=== PATIENT | male | born 2000 | race Caucasian/White ===

== ENCOUNTER 2018-11-08 18:16 | Observation (INO) ==
[2018-11-08] MEDS ORDERED: NUBAIN INJ 10 IM ONE (18:35)
[2018-11-08] MEDS ORDERED: ZOFRAN INJ 4 MG VIAL IVP ONE (18:35)
[2018-11-08] MEDS ORDERED: NS 1000 ML 1,000 ML IV ONE (18:35)
[2018-11-08] MEDS ORDERED: NUBAIN INJ 10 ONE (18:40)
--- NOTE | 2018-11-08 18:46 | DR.ABDMALE ---
HPI Time seen Time Seen by Provider: 11/08/18 18:34 PCP Primary Care Physician: DR FIERRO Complaint Chief Complaint Doctors Comments: A 17 y/o male presenting with c/o abd. pain that was sudden in onset about 1 hr. DELIVERY PERSON in the ED. Location is in the Rt. flank and RLQ. He describes this as being sharp in nature. It has been constant ans he has nausea with one episode of emesis so far. He has a hx. of nephrolithiasis and has undergone multiple lithotripsies but states that this [ain feels different from his usual renal stone pain. He has no dysuria. Chief Complaint:: PT WOKE UP ABOUT TEN MINUTES AGO WITH SEVERE PAIN INTO RLQ THAT STARTED SUDDENLY AND IS DESCRIBED CONSTANT SHARP STABBING ASSOCIATED WITH NAUSEA AND VOMITING. Reviewed Nurses Notes Review: Yes Source History provided by:: Pt. Mode of arrival Mode of Arrival: Ambulatory Timing Onset of Chief Complaint: 11/08/18 Came on: Suddenly and On Awakening Duration Duration: Constant How lon Duration: Hours Location Location: RLQ Severity Severity: Severe Quality Quality: Sharp Context Onset: Suddenly History of: Urolithiasis Modifying factors Worsening Factors: Movement Improving Factors: Nothing Associated signs and symptoms Associated Signs and Symptoms: Nausea and Vomiting PMH PMH Past Medical History: Yes Past Medical History: Kidney Stones Past Surgical History: Yes Surgical History: Lithotripsy Family History History of Family Medical Conditions: No Social History Does patient currently use any type of tobacco product: No Have you used tobacco products in the last 12 months: No Type of Tobacco Use: Cigarettes Does any household member use tobacco: No Alcohol Use: Rarely Do you use any recreational Drugs:: No Lives With: Family Lives Where: Home infectious screening In the last 2 months have you had wt loss of >10#?: NO Have you had fever, night sweats or hemotysis?: No Have you traveled outside the country in the last 6 months?: No Isolation: Standard ROS Review of Systems Constitutional: No Symptoms Reported Eyes: No Symptoms Reported ENTM: No Symptoms Reported Respiratoy: No Symptoms Reported Cardiovascular: No Symptoms Reported Gastrointestinal/Abdominal: Abdominal Pain, Nausea and Vomiting Genitourinary: No Symptoms Reported Neurological: No Symptoms Reported Musculoskeletal: No Symptoms Reported Integumentary: No Symptoms Reported Hematologic/Lymphatic: No Symptoms Reported Endocrine: No Symptoms Reported Psychiatric: No Symptoms Reported PE Vital Signs Vital Signs: Temp Pulse Pulse Resp BP BP Pulse Ox 11/08/18 23:00 66 129/66 98 11/08/18 22:45 67 99 11/08/18 22:30 69 130/76 98 11/08/18 19:51 20 11/08/18 18:51 20 11/08/18 18:19 98.8 F 76 20 134/86 99 General Limitations: No Limitations General Appearance: Alert and In Distress (presumed pain related ) Head Head Exam: Normal Inspection, Atraumatic and Normocephalic Eyes Eye exam: Normal Appearance and EOMI ENT ENT Exam: Normal Oropharynx and Mucous Membranes Moist Neck Neck Exam: Normal Inspection, Full ROM and Trachea Midline Chest Chest Inspection: Normal Inspection and Symmetric Chest Wall Rise Respiratory Respiratory Exam: Normal Lung Sounds Bilat Cardiovascular Cardiovascular Exam: Regular Rate, Normal Rhythm, +S1 and +S2 Abdominal Exam Abdominal Exam: Normal Inspection, Normal Bowel Sounds, Soft, Tenderness and Other; negative Distention, Guarding, Rebound, Rigidity, Dimnished Bowel Sounds, Hyperactive Bowel Sounds, Hypoactive Bowel Sounds, Organomegaly, Trauma, Incision, Ascites, Mass, Bruit, Pulsatile Mass and Hernia Abdominal Tenderness: RLQ and Other (Rt. flank) Rectal Rectal Exam: Deferred Back Back Exam: Normal Inspection and (R) CVA Tenderness Extremeties Extremities Exam: Normal Inspection and Full ROM Exam: Male: Deferred Neurologic Neurological Exam: Alert and Oriented X3 Psychiatric Psychiatric Exam: Normal Affect and Normal Mood Skin Skin Exam: Dry and Normal Color MDM Differential Diagnosis Differential Diagnosis: Appendicitis, Cholelethiasis, Urinary tract infection and Urolithiasis COURSE Reevaluation 1st: Improved 2nd: Unchanged Consultation Consultation Comments: I spoke with both the Surgeon (Dr. VILLATORO) and Hospitalist (Dr. Wilson), they are both in agreement to this pt. being admitted. Education/Counseling Education/Counseling: Patient, Education and Counseling Educated On: Treatment, Diagnosis, Prognosis and Needs for Follow Up ROR Labs Reviewed Laboratory Results Reviewed?: Yes Result Diagrams: 11/08/18 18:46 11/08/18 18:46 Laboratory: WBC 10.0 X10^3/uL (3.6-10.0) 11/08/18 18:46 RBC 5.29 X10^6/uL (4.7-6.0) 11/08/18 18:46 Hgb 15.0 g/dL (13.5-18.0) 11/08/18 18:46 Hct 43.5 % (42.0-54.0) 11/08/18 18:46 MCV 82.2 fL (80.0-100.0) 11/08/18 18:46 MCH 28.3 pg (27.0-34.0) 11/08/18 18:46 MCHC 34.4 g/dL (33.0-35.0) 11/08/18 18:46 RDW 13.1 % (11.6-16.5) 11/08/18 18:46 Plt Count 263 X10^3/uL (150.0-450.0) 11/08/18 18:46 MPV 7.2 fL (7.4-11.0) L 11/08/18 18:46 Neut % (Auto) 71.2 % (42.0-75.0) 11/08/18 18:46 Lymph % (Auto) 18.9 % (21.0-51.0) L 11/08/18 18:46 [place] % (Auto) 5.9 % (0.0-13.0) 11/08/18 18:46 Eos % (Auto) 2.8 % (0.9-2.9) 11/08/18 18:46 Baso % (Auto) 1.2 % (0.2-1.0) H 11/08/18 18:46 Neut # (Auto) 7.1 x10^3/uL (2.2-4.8) H 11/08/18 18:46 Lymph # (Auto) 1.9 X10^3/uL (1.3-2.9) 11/08/18 18:46 [place] # (Auto) 0.6 x10^3/uL (0.3-0.8) 11/08/18 18:46 Eos # (Auto) 0.3 x10^3/uL (0.0-0.2) H 11/08/18 18:46 Baso # (Auto) 0.1 X10^3/uL (0.0-0.1) 11/08/18 18:46 Absolute Nucleated RBC 0.0 /100WBC 11/08/18 18:46 Sodium 138 mmol/L (136-145) 11/08/18 18:46 Corrected Sodium TNP 11/08/18 18:46 Potassium 3.9 mmol/L (3.5-5.1) 11/08/18 18:46 Chloride 102 mmol/L (98-107) 11/08/18 18:46 Carbon Dioxide 29.2 mmol/L (21-32) 11/08/18 18:46 BUN 12 mg/dL (7-18) 11/08/18 18:46 Creatinine 1.32 mg/dL (0.70-1.30) H 11/08/18 18:46 Est GFR (MDRD) Af Amer > 60 (>60) 11/08/18 18:46 Est GFR (MDRD) Non-Af > 60 (>60) 11/08/18 18:46 Glucose 92 mg/dL (65-99) 11/08/18 18:46 Calcium 9.4 mg/dL (8.5-10.1) 11/08/18 18:46 Corrected Calcium TNP 11/08/18 18:46 Total Bilirubin 0.50 mg/dL (0.2-1.0) 11/08/18 18:46 AST 16 Units/L (15-37) 11/08/18 18:46 ALT 15 Units/L (12-78) 11/08/18 18:46 Alkaline Phosphatase 66 Units/L (75-270) L 11/08/18 18:46 Total Protein 7.6 g/dL (6.4-8.2) 11/08/18 18:46 Albumin 4.3 g/dL (3.4-5.0) 11/08/18 18:46 Globulin 3.3 g/dL (2.5-4.5) 11/08/18 18:46 Albumin/Globulin Ratio 1.3 Ratio (1.1-2.1) 11/08/18 18:46 Specimen Type Clean catch urine 11/08/18 19:57 Urine Color Yellow (YELLOW) 11/08/18 19:57 Urine Appearance Clear (CLEAR) 11/08/18 19:57 Urine pH 6.5 (5.0 - 8.0) 11/08/18 19:57 Ur Specific [place] 1.015 (1.000-1.030) 11/08/18 19:57 Urine Protein Negative (NEGATIVE) 11/08/18 19:57 Urine Glucose (UA) Negative (NEGATIVE) 11/08/18 19:57 Urine Ketones Negative (NEGATIVE) 11/08/18 19:57 Urine Occult Blood 2+ (NEGATIVE) 11/08/18 19:57 Urine Nitrite Negative (NEGATIVE) 11/08/18 19:57 Urine Bilirubin Negative (NEGATIVE) 11/08/18 19:57 Urine Urobilinogen Normal (NORMAL) 11/08/18 19:57 Ur Leukocyte Esterase Negative (NEGATIVE) 11/08/18 19:57 Urine RBC 3-5 /HPF (NONE SEEN) 11/08/18 19:57 Urine WBC None seen /HPF (NONE SEEN) 11/08/18 19:57 Ur Squamous Epith Cells Rare /HPF (NEGATIVE) 11/08/18 19:57 Urine Bacteria Negative /HPF (NEGATIVE) 11/08/18 19:57 Ur Culture Indicated? No/not indicated 11/08/18 19:57 Other Results Comments: Abdomial/Pelvic CT Scan report: Early appendicitis without evidence of perforation or abscess formation. Opioid Opioid Risk Tool Total: 0 Total Score Risk Category: Low Risk Copyright: Daniel NAIDU predicting aberrant behaviors Diagnosis Discharge Problem: Acute appendicitis Qualifiers: Acute appendicitis type: unspecified acute appendicitis type Qualified Code(s): K35.80 - Unspecified acute appendicitis
[2018-11-08] MEDS ORDERED: NUBAIN INJ 10 IVP ONE (18:51)
[2018-11-08 18:57] LABS: BASOPHILS # (AUTO) 0.1 X10^3/uL (0.0-0.1); BASOPHILS % (AUTO) 1.2 % (0.2-1.0); EOSINOPHILS # (AUTO) 0.3 x10^3/uL (0.0-0.2); EOSINOPHILS % (AUTO) 2.8 % (0.9-2.9); HEMATOCRIT 43.5 % (42.0-54.0); LYMPHOCYTES # (AUTO) 1.9 X10^3/uL (1.3-2.9); LYMPHOCYTES % (AUTO) 18.9 % (21.0-51.0); MEAN CORPUSCULAR HEMOGLOBIN 28.3 pg (27.0-34.0); MEAN CORPUSCULAR HGB CONC 34.4 g/dL (33.0-35.0); MEAN CORPUSCULAR VOLUME 82.2 fL (80.0-100.0); MEAN PLATELET VOLUME 7.2 fL (7.4-11.0); MONOCYTES # (AUTO) 0.6 x10^3/uL (0.3-0.8); MONOCYTES % (AUTO) 5.9 % (0.0-13.0); NEUTROPHILS # (AUTO) 7.1 x10^3/uL (2.2-4.8); NEUTROPHILS % (AUTO) 71.2 % (42.0-75.0); PLATELET COUNT 263 X10^3/uL (150.0-450.0); RED BLOOD COUNT 5.29 X10^6/uL (4.7-6.0); RED CELL DISTRIBUTION WIDTH 13.1 % (11.6-16.5)
[2018-11-08 19:05] LABS: ALANINE AMINOTRANSFERASE 15 Units/L (12-78); ALBUMIN 4.3 g/dL (3.4-5.0); ALKALINE PHOSPHATASE 66 Units/L (75-270); ASPARTATE AMINO TRANSFERASE 16 Units/L (15-37); BLOOD UREA NITROGEN 12 mg/dL (7-18); CALCIUM 9.4 mg/dL (8.5-10.1); CARBON DIOXIDE 29.2 mmol/L (21-32); CHLORIDE 102 mmol/L (98-107); CREATININE 1.32 mg/dL (0.70-1.30); SODIUM 138 mmol/L (136-145); TOTAL PROTEIN 7.6 g/dL (6.4-8.2); eGFR NON BLACK RACES > 60 (>60)
[2018-11-08 20:03] LABS: BILIRUBIN,URINE NEGATIVE (NEGATIVE); BLOOD/HEMOGLOBIN,URINE 2+ (NEGATIVE); GLUCOSE, URINE NEGATIVE (NEGATIVE); KETONES,URINE NEGATIVE (NEGATIVE); LEUKOCYTE ESTERASE ,URINE NEGATIVE (NEGATIVE); NITRITES,URINE NEGATIVE (NEGATIVE); PH,URINE 6.5 (5.0 - 8.0); PROTEIN,URINE NEGATIVE (NEGATIVE); UROBILINOGEN,URINE NORMAL (NORMAL)
[2018-11-08 20:30] LABS: APPEARANCE,URINE CLEAR (CLEAR); BACTERIA,URINE NEGATIVE /HPF (NEGATIVE); COLOR,URINE YELLOW (YELLOW); SQUAMOUS EPITHELIAL CELL,UR RARE /HPF (NEGATIVE)
[2018-11-08] MEDS ORDERED: NS 100 ML IV 100 ML ONE (20:32)
--- NOTE | 2018-11-08 21:07 | CT ---
CT abdomen and pelvis with contrast Indication: Right lower quadrant pain Comparison: None available Technique: Multiple axial images of the abdomen and pelvis were obtained from the lung bases to the pubic symphysis after the administration of IV contrast. Coronal and sagittal reformatted images were also provided. Dose reduction techniques including automated exposure control (AEC) and adjustment of mA and kV were utilized. Findings: The lung bases are clear. No focal hepatic lesion is identified. Gallbladder, bile ducts, spleen, pancreas and adrenal glands are normal. Neither kidney demonstrates evidence of hydronephrosis or mass. Punctate stone noted within the pole the right kidney is most consistent with a nonobstructing stone. Additional punctate stones within the left kidney also likely represent nonobstructing stones. Upper GI tract is unremarkable. Urinary bladder is normal. Prostate gland is normal. The rectum and colon are normal. The appendix is mildly dilated with increased mucosal enhancement and periappendiceal stranding consistent with appendicitis. No localizing fluid collection or gas. Abdominal aorta is normal in caliber. Review of bone windows demonstrates no acute osseous abnormality. Impression: 1.Early acute appendicitis without evidence of perforation or abscess formation. Surgical consultation is recommended. 2. Suspected bilateral punctate nonobstructing nephrolithiasis; however, correlation with urinalysis is needed to exclude the possibility of very early excretion of iodinated contrast. Reported By:
[2018-11-08] MEDS ORDERED: ZOSYN VIAL 2.25 GRAMS 2.25 G in NS 100 ML IV + SPIKE MINIBAG* 100 ML IV SCH (22:00)
[2018-11-08] MEDS: NS 1000 ML 1,000 ML IV SCH (22:02)
[2018-11-08] MEDS ORDERED: DILAUDID INJ IVP PRN (23:10)
[2018-11-08] MEDS ORDERED: ZOFRAN INJ 4 MG VIAL IVP PRN (23:10)
[2018-11-08] MEDS ORDERED: ZOSYN VIAL 2.25 GRAMS 2.25 G in NS 100 ML IV + SPIKE MINIBAG* 100 ML IV ONE (23:21)
[2018-11-09 00:09] VITALS: BMI 24.3
[2018-11-09 05:10] LABS: BASOPHILS % (AUTO) 0.7 % (0.2-1.0); EOSINOPHILS # (AUTO) 0.2 x10^3/uL (0.0-0.2); EOSINOPHILS % (AUTO) 3.6 % (0.9-2.9); HEMATOCRIT 40.4 % (42.0-54.0); HEMOGLOBIN 13.7 g/dL (13.5-18.0); LYMPHOCYTES # (AUTO) 1.3 X10^3/uL (1.3-2.9); LYMPHOCYTES % (AUTO) 20.5 % (21.0-51.0); MEAN CORPUSCULAR HEMOGLOBIN 28.2 pg (27.0-34.0); MEAN PLATELET VOLUME 7.2 fL (7.4-11.0); MONOCYTES # (AUTO) 0.6 x10^3/uL (0.3-0.8); MONOCYTES % (AUTO) 9.6 % (0.0-13.0); NEUTROPHILS # (AUTO) 4.3 x10^3/uL (2.2-4.8); NEUTROPHILS % (AUTO) 65.6 % (42.0-75.0); PLATELET COUNT 231 X10^3/uL (150.0-450.0); RED BLOOD COUNT 4.87 X10^6/uL (4.7-6.0); RED CELL DISTRIBUTION WIDTH 13.2 % (11.6-16.5); WHITE BLOOD COUNT 6.6 X10^3/uL (3.6-10.0)
[2018-11-09 05:22] LABS: ALANINE AMINOTRANSFERASE 15 Units/L (12-78); ALBUMIN 3.6 g/dL (3.4-5.0); ALKALINE PHOSPHATASE 58 Units/L (75-270); ASPARTATE AMINO TRANSFERASE 11 Units/L (15-37); BLOOD UREA NITROGEN 10 mg/dL (7-18); CALCIUM 8.6 mg/dL (8.5-10.1); CARBON DIOXIDE 27.8 mmol/L (21-32); CHLORIDE 103 mmol/L (98-107); CREATININE 1.13 mg/dL (0.70-1.30); SODIUM 138 mmol/L (136-145); TOTAL PROTEIN 6.7 g/dL (6.4-8.2); eGFR NON BLACK RACES > 60 (>60)
[2018-11-09] MEDS: NS 1000 ML 1,000 ML IV SCH ×4 (05:58→21:20)
[2018-11-09] MEDS ORDERED: LR 1000 ML IV 1,000 ML ONE ×2 (07:41→10:58)
[2018-11-09] MEDS ORDERED: BACTROBAN TOPICAL OINT ONE (07:41)
[2018-11-09] MEDS ORDERED: ANCEF 1 GRAM IV PREMIX* 1 G/50 ML BAG IV ONE (07:41)
[2018-11-09] MEDS ORDERED: DILAUDID INJ ONE ×2 (09:48→11:26)
[2018-11-09] MEDS ORDERED: FENTANYL INJ 250 mcg ONE (09:48)
[2018-11-09] MEDS ORDERED: DECADRON INJ ONE (09:49)
[2018-11-09] MEDS ORDERED: ZEMURON ONE (09:58)
[2018-11-09] MEDS ORDERED: AMIDATE INJ 40 MG VIAL ONE (10:05)
--- NOTE | 2018-11-09 11:18 | OR.GENERIC ---
Post-Op Note Generic - Post-Op Note Operative Report: lap appendectomy was done without complication . finding : acute appendicitis . EBL 10 cc. same IV ATB . NPO .. may have ice .
[2018-11-09] MEDS ORDERED: ROBINUL ONE (15:54)
[2018-11-09] MEDS ORDERED: NEOSTIGMINE INJ ONE (15:54)
[2018-11-09] MEDS ORDERED: ULTANE GAS ONE (15:54)
[2018-11-09] MEDS ORDERED: ZOFRAN INJ 4 MG VIAL ONE (15:54)
[2018-11-09] MEDS ORDERED: VERSED ONE (15:54)
[2018-11-09] MEDS: DILAUDID INJ IVP PRN (18:20)
[2018-11-10] MEDS: DILAUDID INJ IVP PRN ×2 (03:36→10:29)
[2018-11-10 05:44] LABS: BASOPHILS % (AUTO) 0.4 % (0.2-1.0); EOSINOPHILS % (AUTO) 0.4 % (0.9-2.9); HEMATOCRIT 39.4 % (42.0-54.0); HEMOGLOBIN 13.6 g/dL (13.5-18.0); LYMPHOCYTES # (AUTO) 0.9 X10^3/uL (1.3-2.9); LYMPHOCYTES % (AUTO) 13.4 % (21.0-51.0); MEAN CORPUSCULAR HEMOGLOBIN 28.4 pg (27.0-34.0); MEAN CORPUSCULAR HGB CONC 34.4 g/dL (33.0-35.0); MEAN CORPUSCULAR VOLUME 82.4 fL (80.0-100.0); MEAN PLATELET VOLUME 7.9 fL (7.4-11.0); MONOCYTES # (AUTO) 0.6 x10^3/uL (0.3-0.8); MONOCYTES % (AUTO) 9.1 % (0.0-13.0); NEUTROPHILS # (AUTO) 4.9 x10^3/uL (2.2-4.8); NEUTROPHILS % (AUTO) 76.7 % (42.0-75.0); PLATELET COUNT 255 X10^3/uL (150.0-450.0); RED BLOOD COUNT 4.79 X10^6/uL (4.7-6.0); RED CELL DISTRIBUTION WIDTH 12.9 % (11.6-16.5); WHITE BLOOD COUNT 6.4 X10^3/uL (3.6-10.0)
[2018-11-10 05:53] LABS: ALANINE AMINOTRANSFERASE 11 Units/L (12-78); ALBUMIN 3.4 g/dL (3.4-5.0); ALKALINE PHOSPHATASE 56 Units/L (75-270); ASPARTATE AMINO TRANSFERASE 12 Units/L (15-37); BLOOD UREA NITROGEN 9 mg/dL (7-18); CALCIUM 8.4 mg/dL (8.5-10.1); CARBON DIOXIDE 27.1 mmol/L (21-32); CHLORIDE 102 mmol/L (98-107); CREATININE 0.91 mg/dL (0.70-1.30); SODIUM 138 mmol/L (136-145); TOTAL PROTEIN 6.6 g/dL (6.4-8.2); eGFR NON BLACK RACES > 60 (>60)
[2018-11-10] MEDS: NS 1000 ML 1,000 ML IV SCH ×2 (06:13→13:07)
[2018-11-10] MEDS ORDERED: PERCOCET TAB 5/325 MG PO PRN (11:14)
[2018-11-10 11:52] VITALS: BP 118/67
--- NOTE | 2018-11-10 13:01 | DR.PROGNOT ---
Hospital Progress Notes - Progress Note for Day of: Progress Note Date: 11/10/18 - Chief Complaint Chief Complaint: po lap appendectomy day 1 . doing fairly well , c/o abdominal pain , tolerating clear liquid . - Past Medical Family Social History Allergies: Allergies propofol Allergy (Verified 11/08/18 18:47) - Vital Signs Vital Signs: Temperature 97.8 F Pulse Rate [Right Brachial] 83 Pulse Rate [Left] 99 Pulse Rate 73 Respiratory Rate 18 Blood Pressure [Right Arm] 118/67 Blood Pressure 125/57 O2 Sat by Pulse Oximetry 95 - Physical Exam Mood Description: Calm Speech Pattern: Clear, Appropriate - Laboratory and Diagnostics Result Diagrams: 11/10/18 04:28 11/10/18 04:28 Labs: Laboratory WBC 6.4 X10^3/uL (3.6-10.0) 11/10/18 04:28 RBC 4.79 X10^6/uL (4.7-6.0) 11/10/18 04:28 Hgb 13.6 g/dL (13.5-18.0) 11/10/18 04:28 Hct 39.4 % (42.0-54.0) L 11/10/18 04:28 MCV 82.4 fL (80.0-100.0) 11/10/18 04:28 MCH 28.4 pg (27.0-34.0) 11/10/18 04:28 MCHC 34.4 g/dL (33.0-35.0) 11/10/18 04:28 RDW 12.9 % (11.6-16.5) 11/10/18 04:28 Plt Count 255 X10^3/uL (150.0-450.0) 11/10/18 04:28 MPV 7.9 fL (7.4-11.0) 11/10/18 04:28 Neut % (Auto) 76.7 % (42.0-75.0) H 11/10/18 04:28 Lymph % (Auto) 13.4 % (21.0-51.0) L 11/10/18 04:28 [place] % (Auto) 9.1 % (0.0-13.0) 11/10/18 04:28 Eos % (Auto) 0.4 % (0.9-2.9) L 11/10/18 04:28 Baso % (Auto) 0.4 % (0.2-1.0) 11/10/18 04:28 Neut # (Auto) 4.9 x10^3/uL (2.2-4.8) H 11/10/18 04:28 Lymph # (Auto) 0.9 X10^3/uL (1.3-2.9) L 11/10/18 04:28 [place] # (Auto) 0.6 x10^3/uL (0.3-0.8) 11/10/18 04:28 Eos # (Auto) 0.0 x10^3/uL (0.0-0.2) 11/10/18 04:28 Baso # (Auto) 0.0 X10^3/uL (0.0-0.1) 11/10/18 04:28 Absolute Nucleated RBC 0.1 /100WBC 11/10/18 04:28 Sodium 138 mmol/L (136-145) 11/10/18 04:28 Corrected Sodium TNP 11/10/18 04:28 Potassium 3.9 mmol/L (3.5-5.1) 11/10/18 04:28 Chloride 102 mmol/L (98-107) 11/10/18 04:28 Carbon Dioxide 27.1 mmol/L (21-32) 11/10/18 04:28 BUN 9 mg/dL (7-18) 11/10/18 04:28 Creatinine 0.91 mg/dL (0.70-1.30) 11/10/18 04:28 Est GFR (MDRD) Af Amer > 60 (>60) 11/10/18 04:28 Est GFR (MDRD) Non-Af > 60 (>60) 11/10/18 04:28 Glucose 97 mg/dL (65-99) 11/10/18 04:28 Calcium 8.4 mg/dL (8.5-10.1) L 11/10/18 04:28 Corrected Calcium TNP 11/10/18 04:28 Total Bilirubin 0.70 mg/dL (0.2-1.0) 11/10/18 04:28 AST 12 Units/L (15-37) L 11/10/18 04:28 ALT 11 Units/L (12-78) L 11/10/18 04:28 Alkaline Phosphatase 56 Units/L (75-270) L 11/10/18 04:28 Total Protein 6.6 g/dL (6.4-8.2) 11/10/18 04:28 Albumin 3.4 g/dL (3.4-5.0) 11/10/18 04:28 Globulin 3.2 g/dL (2.5-4.5) 11/10/18 04:28 Albumin/Globulin Ratio 1.1 Ratio (1.1-2.1) 11/10/18 04:28 Specimen Type Clean catch urine 11/08/18 19:57 Urine Color Yellow (YELLOW) 11/08/18 19:57 Urine Appearance Clear (CLEAR) 11/08/18 19:57 Urine pH 6.5 (5.0 - 8.0) 11/08/18 19:57 Ur Specific [place] 1.015 (1.000-1.030) 11/08/18 19:57 Urine Protein Negative (NEGATIVE) 11/08/18 19:57 Urine Glucose (UA) Negative (NEGATIVE) 11/08/18 19:57 Urine Ketones Negative (NEGATIVE) 11/08/18 19:57 Urine Occult Blood 2+ (NEGATIVE) 11/08/18 19:57 Urine Nitrite Negative (NEGATIVE) 11/08/18 19:57 Urine Bilirubin Negative (NEGATIVE) 11/08/18 19:57 Urine Urobilinogen Normal (NORMAL) 11/08/18 19:57 Ur Leukocyte Esterase Negative (NEGATIVE) 11/08/18 19:57 Urine RBC 3-5 /HPF (NONE SEEN) 11/08/18 19:57 Urine WBC None seen /HPF (NONE SEEN) 11/08/18 19:57 Ur Squamous Epith Cells Rare /HPF (NEGATIVE) 11/08/18 19:57 Urine Bacteria Negative /HPF (NEGATIVE) 11/08/18 19:57 Ur Culture Indicated? No/not indicated 11/08/18 19:57 Tissue Pathology To follow 11/09/18 12:57 - Assessment and Plan 1: acute appendicitis ,PO lap appendectomy . to advance diet , same IV ATB . d/c in AM - Problem Patient Problems: Patient Problems Acute appendicitis (Acute) K35.80
--- NOTE | 2018-11-10 13:37 | DR.H&P ---
H&P - History & Physical for Day of: H&P Date: 11/08/18 - Chief Complaint Chief Complaint: ABDOMINAL PAIN, N/V - History of Present Illness History of Present Illness: 17 WM ER ADMISSION AFTER PRESENTING WITH CO INTRACTABLE RLQ AND R FLANK PAIN FEW HOURS PRIOR TO ARRIVAL WITH N/V. PT HAD CT IN ER WITH ACUTE APPENDICITIS. PT HAD PMH OF RENAL CALCULI. PT ADMITTED FOR SURGICAL CONSULT AND IV ATBX THERAPY. - Past Medical History Past Medical History: Kidney Stones - Past Surgical History Surgical History: Lithotripsy - Social History Does patient currently use any type of tobacco product: Yes Have you used tobacco products in the last 12 months: Yes Type of Tobacco Use: Cigarettes Does any household member use tobacco: No Alcohol Use: Occasionally Drug Use: None - Medications Home Medications: propofol Allergy (Verified 11/08/18 18:47) CONTINUE taking the following medications NK 11/08/18 [History] - Review of Systems Constitutional: Chills, Malaise Eyes: No Symptoms Reported ENT: No Symptoms Reported Respiratory: No Symptoms Reported Cardiovascular: No Symptoms Reported Gastrointestinal: Nausea, Vomiting, Abdominal Pain Genitourinary: No Symptoms Reported Musculoskeletal: Back Pain Skin: No Symptoms Reported Neurological: No Symptoms Reported - Physical Exam Vital Signs: Temperature 97.8 F Pulse Rate [Right Brachial] 83 Pulse Rate [Left] 99 Pulse Rate 73 Respiratory Rate 18 Blood Pressure [Right Arm] 118/67 Blood Pressure 125/57 O2 Sat by Pulse Oximetry 95 Oriented: Normal Eyes: Normal Ear: Normal Nose: Injected Throat: Normal Respiratory: Clear Throughout Cardiovascular: Normal : Normal Auscultation: Bowel Sounds: Normal Palpation: Normal Tenderness: RLQ, Periumbilical Skin: Normal Musculoskeletal: Normal Psychiatric: Normal Mood Description: Calm Speech Pattern: Clear, Appropriate - Assessment/Plan (1) Acute appendicitis Qualifiers: Acute appendicitis type: unspecified acute appendicitis type Qualified Code(s): K35.80 - Unspecified acute appendicitis Status: Acute Plan: ADMIT, NPO PAIN CONTROL. IV HYDRATION, CONSULT DR MURRAY - Allergies Allergies/Adverse Reactions: Allergies Allergy/AdvReac Type Severity Reaction Status Date / Time propofol Allergy Verified 11/08/18 18:47
--- NOTE | 2018-11-10 13:39 | PCM.PROG ---
Progress Note - Progress Note for Day of Date of Exam: 11/09/18 - Subjective Subjective: 17 WM ER ADMISSION LAST PM WITH EARLY ACUTE APPENDICITIS. PT IS NPO FOR APPEDECTOMY PER DR MURRAY THIS AM. - Past Medical Family Social History Past Med/Fam/Surg Hx: No changes since H&P Allergies: Allergies propofol Allergy (Verified 11/08/18 18:47) - Review of Systems ROS: No change since H&P - Vital Signs and I&O's Vital Signs: Temperature 97.8 F Pulse Rate [Right Brachial] 83 Pulse Rate [Left] 99 Pulse Rate 73 Respiratory Rate 18 Blood Pressure [Right Arm] 118/67 Blood Pressure 125/57 O2 Sat by Pulse Oximetry 95 Intake and Output: Intake & Output 11/08/18 11/09/18 11/10/18 11/11/18 11:59 11:59 11:59 11:59 Intake Total 1300 / 1300 560 / 560 Output Total 310 / 310 Balance 990 / 990 560 / 560 - Physical Exam Oriented: Normal Eyes: Normal Ear: Normal Nose: Injected Throat: Normal Cardiovascular: Normal : Normal Auscultation: Bowel Sounds: Normal Tenderness: RLQ, Periumbilical Skin: Normal Musculoskeletal: Normal Psychiatric: Normal Mood Description: Calm Speech Pattern: Clear, Appropriate - Laboratory and Diagnostics Result Diagrams: 11/10/18 04:28 11/10/18 04:28 Labs: Laboratory WBC 6.4 X10^3/uL (3.6-10.0) 11/10/18 04:28 RBC 4.79 X10^6/uL (4.7-6.0) 11/10/18 04:28 Hgb 13.6 g/dL (13.5-18.0) 11/10/18 04:28 Hct 39.4 % (42.0-54.0) L 11/10/18 04:28 MCV 82.4 fL (80.0-100.0) 11/10/18 04:28 MCH 28.4 pg (27.0-34.0) 11/10/18 04:28 MCHC 34.4 g/dL (33.0-35.0) 11/10/18 04:28 RDW 12.9 % (11.6-16.5) 11/10/18 04:28 Plt Count 255 X10^3/uL (150.0-450.0) 11/10/18 04:28 MPV 7.9 fL (7.4-11.0) 11/10/18 04:28 Neut % (Auto) 76.7 % (42.0-75.0) H 11/10/18 04:28 Lymph % (Auto) 13.4 % (21.0-51.0) L 11/10/18 04:28 [place] % (Auto) 9.1 % (0.0-13.0) 11/10/18 04:28 Eos % (Auto) 0.4 % (0.9-2.9) L 11/10/18 04:28 Baso % (Auto) 0.4 % (0.2-1.0) 11/10/18 04:28 Neut # (Auto) 4.9 x10^3/uL (2.2-4.8) H 11/10/18 04:28 Lymph # (Auto) 0.9 X10^3/uL (1.3-2.9) L 11/10/18 04:28 [place] # (Auto) 0.6 x10^3/uL (0.3-0.8) 11/10/18 04:28 Eos # (Auto) 0.0 x10^3/uL (0.0-0.2) 11/10/18 04:28 Baso # (Auto) 0.0 X10^3/uL (0.0-0.1) 11/10/18 04:28 Absolute Nucleated RBC 0.1 /100WBC 11/10/18 04:28 Sodium 138 mmol/L (136-145) 11/10/18 04:28 Corrected Sodium TNP 11/10/18 04:28 Potassium 3.9 mmol/L (3.5-5.1) 11/10/18 04:28 Chloride 102 mmol/L (98-107) 11/10/18 04:28 Carbon Dioxide 27.1 mmol/L (21-32) 11/10/18 04:28 BUN 9 mg/dL (7-18) 11/10/18 04:28 Creatinine 0.91 mg/dL (0.70-1.30) 11/10/18 04:28 Est GFR (MDRD) Af Amer > 60 (>60) 11/10/18 04:28 Est GFR (MDRD) Non-Af > 60 (>60) 11/10/18 04:28 Glucose 97 mg/dL (65-99) 11/10/18 04:28 Calcium 8.4 mg/dL (8.5-10.1) L 11/10/18 04:28 Corrected Calcium TNP 11/10/18 04:28 Total Bilirubin 0.70 mg/dL (0.2-1.0) 11/10/18 04:28 AST 12 Units/L (15-37) L 11/10/18 04:28 ALT 11 Units/L (12-78) L 11/10/18 04:28 Alkaline Phosphatase 56 Units/L (75-270) L 11/10/18 04:28 Total Protein 6.6 g/dL (6.4-8.2) 11/10/18 04:28 Albumin 3.4 g/dL (3.4-5.0) 11/10/18 04:28 Globulin 3.2 g/dL (2.5-4.5) 11/10/18 04:28 Albumin/Globulin Ratio 1.1 Ratio (1.1-2.1) 11/10/18 04:28 Specimen Type Clean catch urine 11/08/18 19:57 Urine Color Yellow (YELLOW) 11/08/18 19:57 Urine Appearance Clear (CLEAR) 11/08/18 19:57 Urine pH 6.5 (5.0 - 8.0) 11/08/18 19:57 Ur Specific [place] 1.015 (1.000-1.030) 11/08/18 19:57 Urine Protein Negative (NEGATIVE) 11/08/18 19:57 Urine Glucose (UA) Negative (NEGATIVE) 11/08/18 19:57 Urine Ketones Negative (NEGATIVE) 11/08/18 19:57 Urine Occult Blood 2+ (NEGATIVE) 11/08/18 19:57 Urine Nitrite Negative (NEGATIVE) 11/08/18 19:57 Urine Bilirubin Negative (NEGATIVE) 11/08/18 19:57 Urine Urobilinogen Normal (NORMAL) 11/08/18 19:57 Ur Leukocyte Esterase Negative (NEGATIVE) 11/08/18 19:57 Urine RBC 3-5 /HPF (NONE SEEN) 11/08/18 19:57 Urine WBC None seen /HPF (NONE SEEN) 11/08/18 19:57 Ur Squamous Epith Cells Rare /HPF (NEGATIVE) 11/08/18 19:57 Urine Bacteria Negative /HPF (NEGATIVE) 11/08/18 19:57 Ur Culture Indicated? No/not indicated 11/08/18 19:57 Tissue Pathology To follow 11/09/18 12:57 - Plan (1) Acute appendicitis Status: Acute Qualifiers: Acute appendicitis type: unspecified acute appendicitis type Qualified Code(s): K35.80 - Unspecified acute appendicitis Plan: NPO PAIN CONTROL. IV HYDRATION, CONSULT DR MURRAY
--- NOTE | 2018-11-10 13:41 | PCM.PROG ---
Progress Note - Progress Note for Day of Date of Exam: 11/10/18 - Subjective Subjective: 17 WM ER ADMISSION ON 11/08 WITH EARLY ACUTE APPENDICITIS. PT ONE DAY POST OP LAP APPENDECTOMY PER DR MURRAY. PT IS TOLERATED CLEAR LIQUIDS WELL THIS AM. CONTINUES WITH POST OPERATIVE PAIN, DENIES ANY N/V. CONTINUE POST OPERATIVE PLAN OF CARE, ADVANCE DIET PER DR MURRAY. - Past Medical Family Social History Past Med/Fam/Surg Hx: No changes since H&P Allergies: Allergies propofol Allergy (Verified 11/08/18 18:47) - Review of Systems ROS: No change since H&P - Vital Signs and I&O's Vital Signs: Temperature 97.8 F Pulse Rate [Right Brachial] 83 Pulse Rate [Left] 99 Pulse Rate 73 Respiratory Rate 18 Blood Pressure [Right Arm] 118/67 Blood Pressure 125/57 O2 Sat by Pulse Oximetry 95 Intake and Output: Intake & Output 11/08/18 11/09/18 11/10/18 11/11/18 11:59 11:59 11:59 11:59 Intake Total 1300 / 1300 560 / 560 Output Total 310 / 310 Balance 990 / 990 560 / 560 - Physical Exam Oriented: Normal Eyes: Normal Ear: Normal Nose: Injected Throat: Normal Cardiovascular: Normal : Normal Auscultation: Bowel Sounds: Normal Tenderness: RLQ, Periumbilical Skin: Normal Musculoskeletal: Normal Psychiatric: Normal Mood Description: Calm Speech Pattern: Clear, Appropriate - Laboratory and Diagnostics Result Diagrams: 11/10/18 04:28 11/10/18 04:28 Labs: Laboratory WBC 6.4 X10^3/uL (3.6-10.0) 11/10/18 04:28 RBC 4.79 X10^6/uL (4.7-6.0) 11/10/18 04:28 Hgb 13.6 g/dL (13.5-18.0) 11/10/18 04:28 Hct 39.4 % (42.0-54.0) L 11/10/18 04:28 MCV 82.4 fL (80.0-100.0) 11/10/18 04:28 MCH 28.4 pg (27.0-34.0) 11/10/18 04:28 MCHC 34.4 g/dL (33.0-35.0) 11/10/18 04:28 RDW 12.9 % (11.6-16.5) 11/10/18 04:28 Plt Count 255 X10^3/uL (150.0-450.0) 11/10/18 04:28 MPV 7.9 fL (7.4-11.0) 11/10/18 04:28 Neut % (Auto) 76.7 % (42.0-75.0) H 11/10/18 04:28 Lymph % (Auto) 13.4 % (21.0-51.0) L 11/10/18 04:28 [place] % (Auto) 9.1 % (0.0-13.0) 11/10/18 04:28 Eos % (Auto) 0.4 % (0.9-2.9) L 11/10/18 04:28 Baso % (Auto) 0.4 % (0.2-1.0) 11/10/18 04:28 Neut # (Auto) 4.9 x10^3/uL (2.2-4.8) H 11/10/18 04:28 Lymph # (Auto) 0.9 X10^3/uL (1.3-2.9) L 11/10/18 04:28 [place] # (Auto) 0.6 x10^3/uL (0.3-0.8) 11/10/18 04:28 Eos # (Auto) 0.0 x10^3/uL (0.0-0.2) 11/10/18 04:28 Baso # (Auto) 0.0 X10^3/uL (0.0-0.1) 11/10/18 04:28 Absolute Nucleated RBC 0.1 /100WBC 11/10/18 04:28 Sodium 138 mmol/L (136-145) 11/10/18 04:28 Corrected Sodium TNP 11/10/18 04:28 Potassium 3.9 mmol/L (3.5-5.1) 11/10/18 04:28 Chloride 102 mmol/L (98-107) 11/10/18 04:28 Carbon Dioxide 27.1 mmol/L (21-32) 11/10/18 04:28 BUN 9 mg/dL (7-18) 11/10/18 04:28 Creatinine 0.91 mg/dL (0.70-1.30) 11/10/18 04:28 Est GFR (MDRD) Af Amer > 60 (>60) 11/10/18 04:28 Est GFR (MDRD) Non-Af > 60 (>60) 11/10/18 04:28 Glucose 97 mg/dL (65-99) 11/10/18 04:28 Calcium 8.4 mg/dL (8.5-10.1) L 11/10/18 04:28 Corrected Calcium TNP 11/10/18 04:28 Total Bilirubin 0.70 mg/dL (0.2-1.0) 11/10/18 04:28 AST 12 Units/L (15-37) L 11/10/18 04:28 ALT 11 Units/L (12-78) L 11/10/18 04:28 Alkaline Phosphatase 56 Units/L (75-270) L 11/10/18 04:28 Total Protein 6.6 g/dL (6.4-8.2) 11/10/18 04:28 Albumin 3.4 g/dL (3.4-5.0) 11/10/18 04:28 Globulin 3.2 g/dL (2.5-4.5) 11/10/18 04:28 Albumin/Globulin Ratio 1.1 Ratio (1.1-2.1) 11/10/18 04:28 Specimen Type Clean catch urine 11/08/18 19:57 Urine Color Yellow (YELLOW) 11/08/18 19:57 Urine Appearance Clear (CLEAR) 11/08/18 19:57 Urine pH 6.5 (5.0 - 8.0) 11/08/18 19:57 Ur Specific [place] 1.015 (1.000-1.030) 11/08/18 19:57 Urine Protein Negative (NEGATIVE) 11/08/18 19:57 Urine Glucose (UA) Negative (NEGATIVE) 11/08/18 19:57 Urine Ketones Negative (NEGATIVE) 11/08/18 19:57 Urine Occult Blood 2+ (NEGATIVE) 11/08/18 19:57 Urine Nitrite Negative (NEGATIVE) 11/08/18 19:57 Urine Bilirubin Negative (NEGATIVE) 11/08/18 19:57 Urine Urobilinogen Normal (NORMAL) 11/08/18 19:57 Ur Leukocyte Esterase Negative (NEGATIVE) 11/08/18 19:57 Urine RBC 3-5 /HPF (NONE SEEN) 11/08/18 19:57 Urine WBC None seen /HPF (NONE SEEN) 11/08/18 19:57 Ur Squamous Epith Cells Rare /HPF (NEGATIVE) 11/08/18 19:57 Urine Bacteria Negative /HPF (NEGATIVE) 11/08/18 19:57 Ur Culture Indicated? No/not indicated 11/08/18 19:57 Tissue Pathology To follow 11/09/18 12:57 - Plan (1) Acute appendicitis Status: Acute Qualifiers: Acute appendicitis type: unspecified acute appendicitis type Qualified Code(s): K35.80 - Unspecified acute appendicitis Plan: CLEAR LIQUIDS, ADVANCE PER SURGEON. IV HYDRATION, CONSULTING DR MURRAY. POST OPERATIVE WOUND CARE
== END 2018-11-10 17:20 | disposition home or self-care (01) ==
LOC: MED/SURG 18:18 → ER 18:18 → MED/SURG 23:33
PROVIDERS: ADMIT Internal Medicine; ATTEND Internal Medicine
PROC: APPYLAP (ICD-10-PCS; 2018-11-09 08:15)
DX: Z87.442 Personal history of urinary calculi; K35.890 Other acute appendicitis without perforation or gangrene
CPT/HCPCS: 36415; 36591; 74177; 80053; 81001; 85025; 96365; 96367; 96374; 96375; 99284; A4222; G0378; J0690; J1100; J1170; J2250; J2300; J2405; J2543; J2710; J3010; J3490; J7030; J7050; J7120